=== PATIENT | male | born 1955 | race Caucasian/White ===

== ENCOUNTER 2023-12-07 06:18 | Day surgery (SDC) | payer MEDICARE ==
[2023-12-07] MEDS ORDERED: Lactated Ringers 1,000 ML IV ONE (06:35)
[2023-12-07 06:44] VITALS: RESP 16; TEMP 97.7
[2023-12-07] MEDS: Lactated Ringers 1,000 ML IV SCH (06:52)
[2023-12-07] MEDS ORDERED: DIPRIVAN 200 MG/20 ML IV ONE ×2 (07:33→07:49)
[2023-12-07] MEDS ORDERED: SUBLIMAZE 100 MCG/2 ML ONE (07:33)
[2023-12-07] MEDS ORDERED: Xylocaine-Mpf 2% 5 Ml Vial ONE (07:33)
[2023-12-07] MEDS ORDERED: Versed 2 MG/2 ML Injection ONE (07:34)
[2023-12-07 08:31] VITALS: PULSE 67
[2023-12-07 08:45] VITALS: BP 126/75; O2SAT 96
--- NOTE | 2023-12-08 08:16 | OP ---
SURGERY DATE/TIME: 12/07/2023 0742 PREOPERATIVE DIAGNOSIS: Screening colonoscopy. POSTOPERATIVE DIAGNOSIS: Normal colon. PROCEDURE: Colonoscopy. SURGEON: Javid Gagnon M.D. ANESTHESIA: MAC by Jasen Noble CRNA. ESTIMATED BLOOD LOSS: None. SPECIMENS: None. DESCRIPTION OF PROCEDURE: After informed written consent was obtained, the patient was taken to the endoscopy suite. He was placed in left lateral decubitus position and anesthesia was titrated to desired level of consciousness. Digital rectal exam showed normal sphincter tone and no internal lesions. The scope was inserted into the rectum and sequentially the entire colonic mucosa was traversed. The level of cecum was reached and verified with direct visualization of the ileocecal valve. Upon withdrawal careful mucosal inspection revealed no gross abnormalities. Prior to withdrawal retroflexion was performed and showed no internal lesions. The scope was removed. The patient was transferred to the recovery room in good condition.
== END 2023-12-07 08:47 | disposition home or self-care (01) ==
LOC: SDC 06:18
PROVIDERS: ATTEND Family Medicine
DX: Z12.11 Encounter for screening for malignant neoplasm of colon (principal)
CPT/HCPCS: J2250; J2704; J3010